=== PATIENT | female | born 1980 | race Caucasian/White ===

== ENCOUNTER 2019-03-16 09:33 | Emergency (ER) | payer OTHER ==
[~2019-03-16] VITALS: Ht 172.7 cm; Wt 90.7 kg
[2019-03-16 09:33] VITALS: BP_SYST 137
--- NOTE | 2019-03-16 09:33 | NUR ---
BROUGHT BACK TO BED #6 AND TRIAGED. REPORT GIVEN TO ADAM
--- NOTE | 2019-03-16 09:37 | NUR ---
Patient presented to ER C/O Flu Symptoms. Patient ambulatory to ER, fever, skin pink and warm, denies N/V/D, pain 8 /10, cough. Patient states headache with intermittent sob, sore throat, body aches x4 days.
[2019-03-16] MEDS ORDERED: ACETAMINOPHEN 500 MG TABLET PO ONE (09:45)
[2019-03-16] MEDS ORDERED: ACETAMINOPHEN 500 MG TABLET ONE (09:55)
--- NOTE | 2019-03-16 09:55 | NUR ---
ER at bedside examining patient.
[2019-03-16] MEDS ORDERED: NACL 0.9% 1,000 ML IV ONE (10:00)
[2019-03-16] MEDS ORDERED: KETOROLAC TROMETHAMINE 30 MG VIAL IVP ONE (10:00)
--- NOTE | 2019-03-16 11:27 | NUR ---
Patient given written and verbal discharge instructions and verbalizes understanding. ER MD discussed with patient the results and treatment provided. Patient in stable condition. ID arm band removed. Rx of Tessalon and Augmentin given. Patient educated on pain management and to follow up with PMD. Pain Scale 2/10 tolerable for patient. Opportunity for questions provided and answered. Medication side effect fact sheet provided.
[2019-03-16 11:40] VITALS: BP_SYST 139
== END 2019-03-16 11:27 | disposition home or self-care (01) ==
LOC: SED 09:33
DX: J40 Bronchitis, not specified as acute or chronic (principal); Z88.6 Allergy status to analgesic agent
CPT/HCPCS: 96374; 99283; J1885; J7030